=== PATIENT | male | born 2000 | race Caucasian/White ===

== ENCOUNTER 2022-02-05 17:51 | Emergency (ER) | payer MEDICAID ==
[~2022-02-05] VITALS: Ht 177.8 cm; Wt 82.0 kg
[2022-02-05] MEDS ORDERED: NALO4SPR BOTHNSTRLS (21:26)
[2022-02-05 21:49] VITALS: BP 120/78
== END 2022-02-05 21:51 | disposition home or self-care (01) ==
LOC: ER 17:51
DX: T40.411A Poisoning by fentanyl or fentanyl analogs, accidental (unintentional), initial encounter (principal); Y92.018 Other place in single-family (private) house as the place of occurrence of the external cause
CPT/HCPCS: 99283